=== PATIENT | male | born 1965 | race Caucasian/White ===

== ENCOUNTER → 2021-02-10 | Outpatient (CLI) | payer OTHER ==
--- NOTE | 2021-02-10 11:54 | KCIC ---
EXAMINATION: MRI LEFT LOWER EXTREMITY W/O INDICATIONS: Left medial dorsal midfoot pain. [place] a strain enlarged. Running injury 3 months ago. TECHNIQUE: Multiplanar multisequence MRI of the left midfoot was obtained without contrast. COMPARISON: Left foot radiograph 11/16/2020 FINDINGS: BONES AND CARTILAGE: There is mild patchy marrow edema throughout the midfoot. Slight lateral offset of second metatarsal relative to the middle cuneiform. Mild marrow edema in the shaft and base of the second and third metatarsals, possibly minimal marrow edema in the fourth metatarsal. There is an ol d healed fifth metatarsal fracture. Old avulsion fracture at the tip of the lateral malleolus. There is marrow edema in the lateral malleolus and mild marrow edema in the medial talus. LIGAMENTS: The dorsal component of the Lisfranc ligament is irregular in appearance with suspected di sruption of the central portion of the ligament (image 14 series 6 and image 36 series 9). Interosseo us portion of the Lisfranc ligament is ill-defined and not well visualized, suspicious for complete t ear. The plantar component is also irregular in appearance with suspected at least partial tearing. TENDONS: The distal flexor and peroneal tendons are intact. Extensor tendons are intact. OTHER:Mild soft tissue edema along the tarsometatarsal joints seen throughout the midfoot. There is e gemma in the sinus Tarsi. Muscles are normal. Plantar fascia is intact. IMPRESSION: 1. Lisfranc ligament injury with suspected disruption the dorsal and interosseous component and at le ast partial tear of the plantar component. There is possible slight lateral offset of the second meta tarsal relative to the middle cuneiform. Recommend orthopedic surgery consultation. 2. Marrow edema throughout the midfoot and second through fourth metatarsals. Mild soft tissue edema throughout the midfoot. Electronically signed by: Sarah Marmolejo MD (02/10/2021 11:51 AM) [facility]
== END ==
LOC: KCIC MRI 07:54
PROVIDERS: ATTEND Physician Assistant
DX: S99.922A Unspecified injury of left foot, initial encounter (principal); R60.0 Localized edema; M79.89 Other specified soft tissue disorders; X58.XXXA Exposure to other specified factors, initial encounter; Y93.89 Activity, other specified; Y92.89 Other specified places as the place of occurrence of the external cause; Y99.9 Unspecified external cause status
CPT/HCPCS: 73718